=== PATIENT | male | born 1945 | race Two or more races ===

== ENCOUNTER 2019-10-25 19:27 | Inpatient (IN) | payer MEDICARE, OTHER ==
[~2019-10-25] VITALS: Ht 177.8 cm; Wt 73.9 kg
[2019-10-25 21:13] LABS: BASOPHILS % 0.5 % (0.0-2.0); EOSINOPHILS % 2.3 % (0.0-5.0); HEMATOCRIT. 39.9 % (42.0-52.0); HEMOGLOBIN. 13.8 g/dL (14.0-18.0); LYMPHOCYTES % 10.1 % (20.0-50.0); MEAN CORPUSCULAR HEMOGLOBIN 31.9 pg (28.0-32.0); MEAN CORPUSCULAR VOLUME 92.6 fL (80.0-94.0); MEAN PLATELET VOLUME 7.6 fl (7.4-10.4); MONOCYTES % 6.5 % (2.0-8.0); NEUTROPHILS % 80.6 % (40.0-76.0); PLATELET 176 x1000/uL (130-400); RED BLOOD CELL COUNT 4.31 mill/uL (4.7-6.1); RED CELL DISTRIBUTION WIDTH 13.2 % (11.6-14.6)
[2019-10-25 21:19] LABS: CHLORIDE 108 mEq/L (98-107)
[2019-10-26 05:35] LABS: CHLORIDE 109 mEq/L (98-107)
[2019-10-26 05:47] LABS: T4 FREE 1.15 ng/dL (0.76-1.46)
[2019-10-26 07:50] VITALS: BP 107/74
[2019-10-26 08:00] VITALS: BP 107/74
[2019-10-26] MEDS ORDERED: LOSA1TAB34 PO (08:59)
[2019-10-26] MEDS ORDERED: LOSARTAN POTASSIUM 50 MG TABLET PO SCH (10:00)
[2019-10-26 11:00] VITALS: BP_SYST 141; BP_SYST 147; BP_SYST 153; BP_DIAS 62; BP_DIAS 70; BP_DIAS 71
[2019-10-26] MEDS ORDERED: INFLUENZA VIRUS VACCINE(AFLURIA) 0.5ML SYR IM ONE (11:00)
[2019-10-26 11:22] VITALS: BP 147/62
[2019-10-26 12:00] VITALS: BP 141/68
== END 2019-10-26 14:22 | disposition home or self-care (01) | DRG 316 ==
LOC: ER 19:36 → 7WST 22:34 → EDBEDREQ 22:36 → EDBEDREQTM 22:36 → ENRESERV 10-26 07:17
PROVIDERS: ADMIT Internal Medicine Critical Care Medicine; ATTEND Internal Medicine Critical Care Medicine
DX: I95.9 Hypotension, unspecified (principal); I10 Essential (primary) hypertension; R00.1 Bradycardia, unspecified; Z79.899 Other long term (current) drug therapy
CPT/HCPCS: 36415; 71045; 80053; 83880; 84439; 84443; 84484; 85025; 85379; 93005; 99285